=== PATIENT | female | born 1945 | race Caucasian/White ===

== ENCOUNTER 2018-12-13 07:37 | Day surgery (SDC) | payer OTHER ==
[2018-12-13] MEDS: TROPICAMIDE 1% 15 ML OPH OPER (08:38)
[2018-12-13] MEDS: DICLOFENAC 0.1% 2.5 ML OPH OPER (08:38)
[2018-12-13] MEDS: MOXIFLOXACIN 0.5% 3 ML OPH OPER (08:38)
[2018-12-13] MEDS: SOD CHLORIDE 0.9% 1,000 ML IV (08:39)
[2018-12-13] MEDS: CYCLOPENTOLATE/PHENYLEPH 2 ML OPH OPER (08:39)
[2018-12-13] MEDS ORDERED: hydrALAzine 20 MG INJ IV (09:00)
[2018-12-13] MEDS ORDERED: LABETALOL HCL 20MG INJ IV (09:00)
[2018-12-13] MEDS ORDERED: NA HYALURONATE/CHONDROITIN 0.5 ML SYG (09:16)
[2018-12-13] MEDS: CARBACHOL 0.01% 1.5 ML OPH INJ (09:18)
[2018-12-13] MEDS: CEFAZOLIN 1 GM INJ (09:19)
[2018-12-13] MEDS: DEXAMETHASONE 4 MG/ML 1 ML INJ (09:19)
[2018-12-13] MEDS: LIDOCAINE 4% (MPF) 5 ML INJ (09:19)
[2018-12-13] MEDS ORDERED: PROPOFOL 20 ML (09:32)
[2018-12-13] MEDS ORDERED: LIDOCAINE 2% (SDV) 5 ML INJ (09:32)
[2018-12-13] MEDS ORDERED: LIDOCAINE 4% (MPF) 5 ML INJ (10:00)
== END 2018-12-13 12:08 | disposition home or self-care (01) ==
LOC: SDS 07:37
DX: H25.11 Age-related nuclear cataract, right eye (principal); I10 Essential (primary) hypertension; E78.5 Hyperlipidemia, unspecified; E11.9 Type 2 diabetes mellitus without complications; F17.200 Nicotine dependence, unspecified, uncomplicated
CPT/HCPCS: 66984